=== PATIENT | female | born 1975 | race Caucasian/White ===

== ENCOUNTER 2019-08-23 14:18 | Emergency (ER) | payer MEDICAID ==
[~2019-08-23] VITALS: Ht 152.4 cm; Wt 47.7 kg
[~2019-08-23 14:18] MED LIST: GENT30OI2 TOP; NO HOME MEDS
[2019-08-23] MEDS ORDERED: normal saline 1000ML IV soln IVB ONE (16:10)
[2019-08-23] MEDS ORDERED: pantoprazole 40 MG vial IV ONE (16:10)
[2019-08-23] MEDS ORDERED: ondansetron/PF 4mg/2ml inj IV ONE (16:10)
[2019-08-23 16:29] LABS: BASOPHILS % (AUTO) 0.3 % (0-1); EOSINOPHILS # (AUTO) 0.2 X10'3 (0-0.9); EOSINOPHILS % (AUTO) 1.4 % (0-6); HEMATOCRIT 42.4 % (35.0-45.0); HEMOGLOBIN 14.4 g/dl (12.0-16.0); LYMPHOCYTES # (AUTO) 0.7 X10'3 (1.1-4.8); LYMPHOCYTES % (AUTO) 4.1 % (21-51); MEAN CORPUSCULAR HEMOGLOBIN 30.9 PG (27.0-31.0); MEAN CORPUSCULAR HGB CONC 34.1 g/dL (33.0-36.5); MEAN CORPUSCULAR VOLUME 90.6 FL (78-98); MEAN PLATELET VOLUME 7.5 FL (7.4-10.4); MONOCYTES # (AUTO) 1.5 X10'3 (0-0.9); MONOCYTES % (AUTO) 9.2 % (2-12); NEUTROPHILS # (AUTO) 13.9 X10'3 (1.8-7.7); PLATELET COUNT 349 X10'3 (140-440); RED BLOOD COUNT 4.68 X10'6 (4.20-5.60); RED CELL DISTRIBUTION WIDTH 12.1 % (11.5-14.5); WHITE BLOOD COUNT 16.3 X10'3 (4.5-11.0)
[2019-08-23 16:51] LABS: ALANINE AMINOTRANSFERASE 22 U/L (12-78); ALBUMIN 3.7 G/DL (3.4-5.0); ALBUMIN/GLOBULIN RATIO 0.9 (1.1-1.5); ALKALINE PHOSPHATASE 73 IU/L (46-116); ANION GAP 9 (8-16); ASPARTATE AMINO TRANSFERASE 21 U/L (10-37); BILIRUBIN,TOTAL 1.4 MG/DL (0.1-1.0); BLOOD UREA NITROGEN 15 MG/DL (7-18); BUN/CREATININE RATIO 31.3 (6.6-38.0); CHLORIDE 105 MMOL/L (99-107); CREATININE 0.48 MG/DL (0.40-0.90); GLUCOSE 94 MG/DL (70-104); LIPASE 220 U/L (73-393); POTASSIUM 3.9 MMOL/L (3.5-5.1); SODIUM 141 MMOL/L (135-145); TOTAL CARBON DIOXIDE 27.4 MMOL/L (24-32); TOTAL PROTEIN 7.9 G/DL (6.4-8.2); eGFR > 90 ML/MIN
[2019-08-23 17:35] LABS: URINE HCG NEGATIVE (NEG)
[2019-08-23 17:36] LABS: CLARITY,URINE CLEAR (Clear); COLOR,URINE YELLOW (Yellow); GLUCOSE, URINE NEGATIVE (Neg); KETONES,URINE 15 mg/dl (Neg); LEUKOCYTE ESTERASE ,URINE NEGATIVE (Neg); NITRITES, URINE NEGATIVE (Neg); OCCULT BLOOD,URINE NEGATIVE (Neg); PROTEIN,URINE NEGATIVE (Neg); UROBILINOGEN,URINE 0.2 E.U/dL (0.2-1.0)
[2019-08-23 17:39] LABS: UA COLLECTION TYPE CLN CATCH MIDSTREAM
[2019-08-23] MEDS ORDERED: pseudoephedrine 30mg tablet PO ONE (17:45)
[2019-08-23 18:42] VITALS: BP 152/100
== END 2019-08-23 18:53 | disposition home or self-care (01) ==
LOC: ER 14:19
DX: K52.9 Noninfective gastroenteritis and colitis, unspecified (principal); F15.90 Other stimulant use, unspecified, uncomplicated; F11.90 Opioid use, unspecified, uncomplicated; F10.10 Alcohol abuse, uncomplicated; H91.92 Unspecified hearing loss, left ear; Z86.19 Personal history of other infectious and parasitic diseases; Z90.49 Acquired absence of other specified parts of digestive tract; Z98.890 Other specified postprocedural states; Z79.899 Other long term (current) drug therapy; Y90.9 Presence of alcohol in blood, level not specified
CPT/HCPCS: 36415; 80053; 81003; 81025; 83690; 85025; 96361; 96374; 96375; 99283; C9113; J2405; J7030

== ENCOUNTER 2019-12-23 12:03 | Emergency (ER) | payer MEDICAID ==
[~2019-12-23] VITALS: Ht 154.9 cm; Wt 65.0 kg
--- NOTE | 2019-12-23 12:54 | NUR ---
pt stated that she has touched black mold now have redness to lft hand with streak red line going to upper arm.looks like cellulitis.
[2019-12-23] MEDS ORDERED: BACDS PO (13:17)
[2019-12-23] MEDS ORDERED: AMOX-422 PO (13:17)
[2019-12-23 13:18] VITALS: BP 146/94
== END 2019-12-23 13:25 | disposition home or self-care (01) ==
LOC: ER 12:03
DX: L03.114 Cellulitis of left upper limb (principal); F10.20 Alcohol dependence, uncomplicated; F15.90 Other stimulant use, unspecified, uncomplicated; F11.90 Opioid use, unspecified, uncomplicated; Z79.2 Long term (current) use of antibiotics; Z86.19 Personal history of other infectious and parasitic diseases; Z90.49 Acquired absence of other specified parts of digestive tract; Z79.899 Other long term (current) drug therapy; Y90.0 Blood alcohol level of less than 20 mg/100 ml
CPT/HCPCS: 99283

== ENCOUNTER 2020-01-27 11:54 | Emergency (ER) | payer MEDICAID ==
[~2020-01-27] VITALS: Ht 152.4 cm; Wt 59.4 kg
[2020-01-27 12:23] VITALS: BP 158/74
[2020-01-27] MEDS ORDERED: DOXY100C76 PO (13:07)
== END 2020-01-27 13:15 | disposition home or self-care (01) ==
LOC: ER 11:55
DX: L03.114 Cellulitis of left upper limb (principal); F10.10 Alcohol abuse, uncomplicated; F15.90 Other stimulant use, unspecified, uncomplicated; F11.90 Opioid use, unspecified, uncomplicated; Z90.49 Acquired absence of other specified parts of digestive tract; Z86.19 Personal history of other infectious and parasitic diseases; Z98.890 Other specified postprocedural states; Z79.899 Other long term (current) drug therapy; Y90.9 Presence of alcohol in blood, level not specified
CPT/HCPCS: 99283

== ENCOUNTER 2020-11-07 14:09 | Emergency (ER) | payer MEDICAID ==
[~2020-11-07] VITALS: Ht 154.9 cm; Wt 51.6 kg
[2020-11-07 16:05] VITALS: BP 129/94
[2020-11-07] MEDS ORDERED: SULF1TAB45 PO (16:42)
[2020-11-07] MEDS ORDERED: CEPH-585 PO (16:42)
[2020-11-07] MEDS ORDERED: cephalexin 250mg capsule PO ONE (16:45)
== END 2020-11-07 17:19 | disposition home or self-care (01) ==
LOC: ER 14:10
DX: L03.114 Cellulitis of left upper limb (principal); F15.90 Other stimulant use, unspecified, uncomplicated; F11.90 Opioid use, unspecified, uncomplicated; M54.89 Other dorsalgia; Z86.19 Personal history of other infectious and parasitic diseases; Z90.49 Acquired absence of other specified parts of digestive tract; Z98.890 Other specified postprocedural states; Z72.89 Other problems related to lifestyle; Z79.2 Long term (current) use of antibiotics
CPT/HCPCS: 99283

== ENCOUNTER 2021-02-17 15:31 | Emergency (ER) | payer MEDICAID ==
[~2021-02-17] VITALS: Ht 154.9 cm; Wt 50.3 kg
[2021-02-17] MEDS ORDERED: CEPH250T PO (15:46)
[2021-02-17] MEDS ORDERED: BACI1PAC7 TOP (16:02)
[2021-02-18] MEDS ORDERED: CEPH-585 PO (04:46)
== END 2021-02-17 16:29 | disposition home or self-care (01) ==
LOC: ER 15:31
DX: L84 Corns and callosities (principal); M79.671 Pain in right foot; F15.90 Other stimulant use, unspecified, uncomplicated; F11.90 Opioid use, unspecified, uncomplicated; Z86.19 Personal history of other infectious and parasitic diseases; Z90.49 Acquired absence of other specified parts of digestive tract; Z98.890 Other specified postprocedural states; Z72.89 Other problems related to lifestyle; Z79.2 Long term (current) use of antibiotics; Z79.899 Other long term (current) drug therapy
CPT/HCPCS: 99283

== ENCOUNTER 2021-02-18 04:22 | Emergency (ER) | payer MEDICAID ==
[~2021-02-18] VITALS: Ht 152.4 cm; Wt 58.2 kg
[~2021-02-18 04:22] MED LIST changes: +BACI1PAC7 TOP
[2021-02-18 04:27] VITALS: BP 178/112
[2021-02-18] MEDS ORDERED: ketorolac trometh. 30mg/ml inj. IM ONE (04:45)
[2021-02-18] MEDS ORDERED: cephalexin 250mg capsule PO ONE (04:45)
[2021-02-18] MEDS ORDERED: CEPH-585 PO (04:46)
== END 2021-02-18 05:03 | disposition home or self-care (01) ==
LOC: ER 04:23
DX: S90.821A Blister (nonthermal), right foot, initial encounter (principal); M79.671 Pain in right foot; F17.210 Nicotine dependence, cigarettes, uncomplicated; F15.90 Other stimulant use, unspecified, uncomplicated; F11.90 Opioid use, unspecified, uncomplicated; Z86.19 Personal history of other infectious and parasitic diseases; Z90.49 Acquired absence of other specified parts of digestive tract; Z98.890 Other specified postprocedural states; Z72.89 Other problems related to lifestyle; Z79.2 Long term (current) use of antibiotics; Z79.899 Other long term (current) drug therapy; X58.XXXA Exposure to other specified factors, initial encounter; Y93.89 Activity, other specified; Y92.89 Other specified places as the place of occurrence of the external cause; Y99.8 Other external cause status
CPT/HCPCS: 96372; 99283; J1885

== ENCOUNTER 2021-07-10 13:59 | Emergency (ER) | payer MEDICAID ==
[~2021-07-10 13:59] MED LIST changes: -BACI1PAC7 TOP; +CEPH-585 PO
== END 2021-07-10 15:33 | disposition left against medical advice (07) ==
LOC: ER 14:02
DX: Z53.21 Procedure and treatment not carried out due to patient leaving prior to being seen by health care provider (principal)

== ENCOUNTER 2021-07-11 10:53 | Emergency (ER) | payer MEDICAID ==
[~2021-07-11] VITALS: Ht 154.9 cm; Wt 58.2 kg
[2021-07-11 11:09] VITALS: BP 140/94
--- NOTE | 2021-07-11 12:14 | NUR ---
ATTEMPT EKG, PT NOT IN LOBBY
--- NOTE | 2021-07-11 14:19 | NUR ---
ATTEMPT EKG AGAIN, PT NOT IN LOBBY
== END 2021-07-11 14:29 | disposition left against medical advice (07) ==
LOC: ER 10:53
DX: R42 Dizziness and giddiness (principal); Z53.21 Procedure and treatment not carried out due to patient leaving prior to being seen by health care provider
CPT/HCPCS: 84484